=== PATIENT | female | born 1955 | race Caucasian/White ===

== ENCOUNTER → 2023-03-12 | Outpatient (CLI) | payer OTHER ==
--- NOTE | 2023-03-12 17:29 | Diagnostic Imaging Report ---
INDICATION: Left arm pain, neck pain Cervical spine AP and lateral views of the cervical spine shows normal alignment. There is disc space narrowing C5-C6. The other disc spaces are normal. There are degenerative changes of the uncovertebral joints at C6 and C7-T1. IMPRESSION: Degenerative changes present in the lower cervical spine. No acute abnormality seen. Dictated by: Dictated on workstation # [id number]
== END ==
LOC: RAD 15:58
PROVIDERS: ATTEND Family Medicine
DX: M47.812 Spondylosis without myelopathy or radiculopathy, cervical region (principal); M79.602 Pain in left arm
CPT/HCPCS: 72040